=== PATIENT | female | born 1945 | race Caucasian/White ===

== ENCOUNTER → 2016-08-24 | Outpatient (CLI) | payer OTHER ==
[~2016-08-24] MED LIST: ADVIL PM 38 MG-1 TAB PO; ALTACE2.5 MG PO; ASPIRIN E.C. 8181 MG PO; BONIVA150 MG PO; CALCIUM500 MG PO; CENTRUM1 TAB PO; COREG3.125 MG PO; EVISTA60 MG PO; GLUCOPHAGE XR500 M1 PO; KOMBIGLYZE XR 11 TER PO; LIPITOR 80MG80 MG PO; LIVALO4 MG PO; MAREPA1200 MG PO; METFORMIN500 MG PO; MULTIPLE VITAMI1 CAP PO; NEXIUM 40MG40 MG PEG; NEXIUM 40MG40 MG PO; NIASPAN1000 MG PO; VITAMIN C BUFF500 MG PO; [UNRECOGNIZED DRUG - OTHER]
== END ==
LOC: MC.RAD 11:03
DX: Z12.31 Encounter for screening mammogram for malignant neoplasm of breast (principal)

== ENCOUNTER → 2016-09-01 | Outpatient (CLI) | payer OTHER, MEDICARE | LOC: SUN.DIA 08-16 14:39 | DX: E11.9 Type 2 diabetes mellitus without complications (principal); E78.5 Hyperlipidemia, unspecified; I10 Essential (primary) hypertension; Z68.24 Body mass index [BMI] 24.0-24.9, adult; Z71.3 Dietary counseling and surveillance; Z87.891 Personal history of nicotine dependence | CPT/HCPCS: G0108 ==

== ENCOUNTER 2017-06-10 14:05 | Emergency (ER) | payer OTHER ==
[~2017-06-10] VITALS: Ht 167.6 cm; Wt 68.2 kg
[2017-06-10 14:09] VITALS: TEMP 98.1
[2017-06-10] MEDS ORDERED: LIVALO4 MG PO (14:32)
[2017-06-10] MEDS ORDERED: ONGLYZA5 MG PO (14:33)
[2017-06-10 17:08] VITALS: BP 162/86; PULSE 70
== END 2017-06-10 17:09 | disposition home or self-care (01) ==
LOC: COL.ER 14:05
DX: S82.852A Displaced trimalleolar fracture of left lower leg, initial encounter for closed fracture (principal); Z79.82 Long term (current) use of aspirin; Z79.84 Long term (current) use of oral hypoglycemic drugs; W01.0XXA Fall on same level from slipping, tripping and stumbling without subsequent striking against object, initial encounter; Y92.34 Swimming pool (public) as the place of occurrence of the external cause
CPT/HCPCS: J2270

== ENCOUNTER → 2017-09-05 | Outpatient (CLI) | payer OTHER ==
[~2017-09-05] MED LIST changes: +ONGLYZA5 MG PO
== END ==
LOC: LIGHT 08-28 10:34 → SUN.DIA 09:32
DX: E11.9 Type 2 diabetes mellitus without complications (principal); E78.5 Hyperlipidemia, unspecified; I10 Essential (primary) hypertension
CPT/HCPCS: G0108

== ENCOUNTER → 2017-10-10 | Outpatient (CLI) | payer OTHER | LOC: MC.RAD 11:00 | DX: Z12.31 Encounter for screening mammogram for malignant neoplasm of breast (principal) ==

== ENCOUNTER → 2017-11-10 | Outpatient (CLI) | payer OTHER | LOC: COL.VAS 12:30 | DX: I34.0 Nonrheumatic mitral (valve) insufficiency (principal); I35.1 Nonrheumatic aortic (valve) insufficiency; I07.1 Rheumatic tricuspid insufficiency ==

== ENCOUNTER → 2018-04-03 | Outpatient (CLI) | payer OTHER | LOC: COL.RAD 10:16 | DX: G93.9 Disorder of brain, unspecified (principal) ==

== ENCOUNTER → 2018-09-04 | Outpatient (CLI) | payer OTHER | LOC: DIA.ED 15:07 | DX: E11.9 Type 2 diabetes mellitus without complications (principal); E78.5 Hyperlipidemia, unspecified; I10 Essential (primary) hypertension | CPT/HCPCS: G0108 ==

== ENCOUNTER → 2018-10-09 | Outpatient (CLI) | payer OTHER | LOC: COL.RAD 10:21 | DX: D18.02 Hemangioma of intracranial structures (principal) | CPT/HCPCS: A9585 ==

== ENCOUNTER → 2018-12-11 | Outpatient (CLI) | payer OTHER | LOC: MC.RAD 16:22 | DX: Z12.31 Encounter for screening mammogram for malignant neoplasm of breast (principal) ==

== ENCOUNTER → 2019-06-12 | Outpatient (CLI) | payer OTHER | LOC: COL.RAD 07:12 | DX: C18.9 Malignant neoplasm of colon, unspecified (principal); K52.9 Noninfective gastroenteritis and colitis, unspecified | CPT/HCPCS: Q9967 ==

== ENCOUNTER → 2019-09-02 | Outpatient (CLI) | payer OTHER | LOC: DIA.ED 10:59 | DX: E11.9 Type 2 diabetes mellitus without complications (principal); Z79.84 Long term (current) use of oral hypoglycemic drugs; E78.5 Hyperlipidemia, unspecified; I10 Essential (primary) hypertension | CPT/HCPCS: G0108 ==

== ENCOUNTER → 2019-12-13 | Outpatient (CLI) | payer OTHER | LOC: MC.RAD 10:13 | DX: Z12.31 Encounter for screening mammogram for malignant neoplasm of breast (principal) ==

== ENCOUNTER → 2021-01-26 | Outpatient (CLI) | payer OTHER | LOC: MC.RAD 15:29 | DX: Z12.31 Encounter for screening mammogram for malignant neoplasm of breast (principal) ==

== ENCOUNTER → 2022-05-26 | Outpatient (CLI) | payer OTHER | LOC: MC.RAD 03-24 08:15 | DX: Z12.31 Encounter for screening mammogram for malignant neoplasm of breast (principal) ==

== ENCOUNTER → 2023-07-05 | Outpatient (CLI) | payer OTHER | LOC: MC.RAD 08:58 | DX: Z12.31 Encounter for screening mammogram for malignant neoplasm of breast (principal) ==